=== PATIENT | male | born 1950 | race African-American/Black ===

== ENCOUNTER 2024-09-26 09:06 | Emergency (ER) | payer OTHER ==
[~2024-09-26] VITALS: Ht 182.9 cm; Wt 105.0 kg
[2024-09-26 09:08] VITALS: BP 143/70; PULSE 100; RESP 18; TEMP 38.4; O2SAT 99
[2024-09-26] MEDS: ONDANSETRON 4MG ODT PO ONE (09:45)
[2024-09-26 10:04] LABS: HEMATOCRIT. 45.7 % (42.0-52.0); HEMOGLOBIN. 14.9 g/dL (14.0-18.0); MEAN CORPUSCULAR HEMOGLOBIN 30.3 pg (28.0-32.0); MEAN CORPUSCULAR HGB CONC 32.7 g/dL (31.0-37.0); MEAN CORPUSCULAR VOLUME 92.8 fL (80.0-94.0); PLATELET 194 x1000/uL (130-400); RED BLOOD CELL COUNT 4.92 mill/uL (4.7-6.1); RED CELL DISTRIBUTION WIDTH 13.8 % (11.6-14.6); WHITE BLOOD COUNT 8.9 x1000/uL (4.5-11.0)
[2024-09-26 10:07] LABS: CHLORIDE 110 mEq/L (98-107); SODIUM 139 mEq/L (136-145)
[2024-09-26 10:08] LABS: CALCIUM 9.4 mg/dL (8.7-10.4); CARBON DIOXIDE 22 mEq/L (21-32); DIFFERENTIAL COMMENT 1
[2024-09-26 10:13] LABS: CREATININE 0.9 mg/dL (0.6-1.3); GLUCOSE 110 mg/dL (70-105); UREA NITROGEN BLOOD 9 mg/dL (9-23)
[2024-09-26] MEDS ORDERED: ONDA-239 PO (10:19)
[2024-09-26 15:37] LABS: PLATELET ESTIMATE NORMAL
== END 2024-09-26 11:00 | disposition home or self-care (01) ==
LOC: ER 09:06
DX: R19.7 Diarrhea, unspecified (principal); I10 Essential (primary) hypertension
CPT/HCPCS: 36415; 80048; 83605; 85025; 99283